=== PATIENT | female | born 1995 | race Two or more races ===

== ENCOUNTER 2020-11-18 17:07 | Emergency (ER) | payer OTHER ==
[~2020-11-18] VITALS: Ht 170.2 cm; Wt 63.5 kg
--- NOTE | 2020-11-18 17:30 | NUR ---
c/o abd pain, dislodged IUD this morning, noted blood, 8/10 pain scale. Patient a/ox4, breathing even and unlabored, no sob noted. Assisted to bed 1, placed on the school lunch monitor.
[2020-11-18] MEDS ORDERED: IV NS 0.9% 1,000 ML BAG IV ONE (18:00)
[2020-11-18] MEDS ORDERED: ONDANSETRON HCL/PF 4 MG/2 ML VIAL IVP ONE (18:00)
[2020-11-18] MEDS ORDERED: MORPHINE SULFATE INJ 2 MG/ML DISP.SYRIN IV ONE ×2 (18:00→21:00)
[2020-11-18] MEDS ORDERED: ONDANSETRON HCL/PF 4 MG/2 ML VIAL ONE ×2 (18:11→20:37)
[2020-11-18] MEDS ORDERED: MORPHINE SULFATE INJ 2 MG/ML DISP.SYRIN ONE ×2 (18:11→21:04)
--- NOTE | 2020-11-18 18:15 | NUR ---
US TECH AT BEDSIDE. IV LINE ESTABLISHED, BLOOD DRAWN AND SENT TO LAB.
[2020-11-18 18:19] LABS: BASOPHILS % (AUTO) 0.3 % (0.0-2.0); EOSINOPHILS % (AUTO) 0.4 % (0.0-6.0); HEMATOCRIT 42 % (33-45); HEMOGLOBIN 14.2 g/dL (11.5-14.8); LYMPHOCYTES # (AUTO) 1.8 K/uL (0.8-4.8); MEAN CORPUSCULAR HGB CONC 33 g/dl (31.0-36.0); MEAN CORPUSCULAR VOLUME 91 fL (82-100); MONOCYTES # (AUTO) 0.3 K/uL (0.1-1.30); MONOCYTES % (AUTO) 4.4 % (2.0-12.0); NEUTROPHILS % (AUTO) 69.9 % (43.0-81.0); PLATELET COUNT (AUTO) 235 K/uL (150-450); RED BLOOD CELL COUNT(AUTO) 4.66 MIL/uL (4.0-5.2); WHITE BLOOD COUNT (AUTO) 7.2 K/uL (4.3-11.0)
[2020-11-18 18:28] LABS: CALCIUM, SERUM 8.4 mg/dL (8.5-10.1); CREATININE 0.9 mg/dL (0.6-1.3); POTASSIUM 3.8 mmol/L (3.5-5.1)
--- NOTE | 2020-11-18 19:15 | NUR ---
rec'd report from [facility] for [facility]
[2020-11-18] MEDS ORDERED: ONDANSETRON HCL/PF - ER 4 MG/2 ML VIAL IV ONE (20:30)
[2020-11-18] MEDS ORDERED: HYDR-4275 PO (21:23)
--- NOTE | 2020-11-18 21:54 | NUR ---
IV removed. Catheter intact and site benign. Pressure and 4x4 applied to site. No bleeding noted. Patient discharged to home in stable condition. Written and verbal after care instructions given. Patient verbalizes understanding of instruction. ambulatory with a steady gait noted. pt aaox4 no acute distress noted, resp even and unlabored. pt denies pain or discomfort at this time. pt s/o at bedside to take pt home.
[2020-11-18 21:55] VITALS: BP 132/64
== END 2020-11-18 21:55 | disposition home or self-care (01) ==
LOC: ER 17:12
DX: T83.32XA Displacement of intrauterine contraceptive device, initial encounter (principal); R10.30 Lower abdominal pain, unspecified; E86.0 Dehydration; Z98.890 Other specified postprocedural states
CPT/HCPCS: 36415; 76856; 80048; 84702; 85025; 96361; 96374; 96375; 96376; 99285; J2270 ×2; J2405 ×3; J7030